=== PATIENT | female | born 1940 | race Caucasian/White ===

== ENCOUNTER → 2017-03-07 | Outpatient (CLI) | payer OTHER ==
[~2017-03-07] MED LIST: ACTONEL OR; ALLERGY-TIME4 MG OR; ASPIRIN EC81 M1; AVAPRO 150 MG150 M1 OR; BENTYL10 MG OR; BIOTIN1 MG OR; CALCIUM 600 +1 EAC1 OR; CELEBREX 200 M200 MG OR; CLONIDINE HCL0.2 M2 OR; DILTIAZEM 24HR360 MG OR; ELAVIL OR; FIORINAL/CODEIN30 M1 OR; FISHOIL OR; GLUCOSAMINE-CH1 EA33 OR; IRON PO; LASIX 40 MG TAB40 M1 OR; MIRALAX255 GM OR; MULTIVITAMINS PO; OMEPRAZOLE OR; PEPTO-BISMOL262 M1 OR; PHENERGAN 25 MG25 M1 PO; PHENERGAN50 MG; SYSTANE 0.3-0.1 EACH OP; VALIUM5 MG OR; [UNRECOGNIZED DRUG - OTHER] PO
== END ==
LOC: RAD 02:28
DX: Z12.31 Encounter for screening mammogram for malignant neoplasm of breast (principal)

== ENCOUNTER → 2018-03-08 | Outpatient (CLI) | payer OTHER | LOC: RAD 10:13 | DX: Z12.31 Encounter for screening mammogram for malignant neoplasm of breast (principal) ==

== ENCOUNTER → 2019-03-09 | Outpatient (CLI) | payer OTHER | LOC: BC 09:56 | DX: Z12.31 Encounter for screening mammogram for malignant neoplasm of breast (principal) ==